=== PATIENT | female | born 2000 | race African-American/Black ===

== ENCOUNTER 2019-06-08 09:26 | Emergency (ER) | payer SELFPAY ==
[2019-06-08 09:50] VITALS: BP 121/55
--- NOTE | 2019-06-08 10:11 | PHYS DOC ---
Past Medical History Past Medical History: No Pertinent History (PARDEEP BATRES APRN) Past Surgical History: No Surgical History (PARDEEP BATRES APRN) Alcohol Use: None (PARDEEP BATRES APRN) Adult General Chief Complaint Chief Complaint: VAGINAL PROBLEM [facility] Patient is a 19 year old female who presents with vaginal discharge been ongoing for 2 weeks. The patient states she's been having white discharge and states she has a new sexual partner. The patient states her last period was on May 23. Denies fever, or any other complaints. Denies any abdominal pain. Denies nausea. Complete ROS were reviewed and found to be within normal limits, except as documented in the HPI (PARDEEP BATRES APRN) Review of Systems Review of Systems (PARDEEP BATRES APRN) Allergies Allergies Allergies Coded Allergies Type Severity Reaction Last Updated Verified No Known Drug Allergies 06/08/19 No (JANICE FOX MD) Physical Exam Physical Exam Constitutional: Well developed, well nourished, no acute distress, non-toxic appearance. [] HENT: Normocephalic, atraumatic, bilateral external ears normal, oropharynx moist, no oral exudates, nose normal. [] Eyes: PERRLA, EOMI, conjunctiva normal, no discharge. [] Skin: Warm, dry, no erythema, no rash. [] Neurologic: Alert and oriented X 3, normal motor function, normal sensory function, no focal deficits noted. [] Psychologic: Affect normal, judgement normal, mood normal. [] (PARDEEP BATRES APRN) Current Patient Data Vital Signs Vital Signs Date Time Temp Pulse Resp B/P (MAP) Pulse Ox O2 Delivery O2 Flow Rate FiO2 06/08/19 09:50 98.2 97 16 121/55 (77) 98 Room Air 98.2 (JANICE FOX MD) EKG EKG [] (PARDEEP BATRES APRN) Radiology/Procedures Radiology/Procedures [] (PARDEEP BATRES APRN) Course & Med Decision Making Course & Med Decision Making Pertinent Labs and Imaging studies reviewed. (See chart for details) Discussed with the patient that she needs to have STD testing performed. A medical screening exam was performed on this patient and the patient does not appear to be having a medical emergency. Her symptoms are not of sufficient severity and within reasonable medical probability it is unlikely the absence of immediate medical attention would result in placing the health of the individual (or, with respect to a woman, the health of the woman or her unborn child) in serious jeopardy, serious impairment to bodily functions, or serious dysfunction of any bodily organ or part. If , the patient is not in labor Patient left ER before treatment. (PARDEEP BATRES APRN) Course & Med Decision Making Staff Physician Addendum: I was working in the ER during the course of this patient's visit. I was availa ble for consultation as needed, but I was not directly involved in the care of this patient. (JANICE FOX MD) Dragon Disclaimer Dragon Disclaimer This electronic medical record was generated, in whole or in part, using a voice recognition dictation system. (PARDEEP BATRES APRN) Departure Departure Impression: Primary Impression: Concern about STD in female without diagnosis Disposition: 01 HOME, SELF-CARE Condition: STABLE Referrals: NO PCP (PCP) Patient Instructions: Sexually Transmitted Disease Additional Instructions: Thank you for visiting [facility]. We appreciate you trusting us with your care. If any additional problems come up don't hesitate to return to visit us. Please follow up with your primary care provider so they can plan additional care if needed and know about the problem that you had. If symptoms worsen come back to the Emergency Department. Any concerning symptoms that start such as chest pain, shortness of air, weakness or numbness on one side of the body, running high fevers or any other concerning symptoms return to the ER. PARDEEP BATRES APRN Jun 08, 2019 10:11 JANICE FOX MD Jun 08, 2019 14:27
== END 2019-06-08 10:19 | disposition home or self-care (01) ==
LOC: ER 09:26
DX: N93.9 Abnormal uterine and vaginal bleeding, unspecified (principal); Z20.2 Contact with and (suspected) exposure to infections with a predominantly sexual mode of transmission
CPT/HCPCS: 99281